=== PATIENT | male | born 1965 | race Caucasian/White ===

== ENCOUNTER 2016-05-24 16:31 | Emergency (ER) | payer OTHER ==
[~2016-05-24] VITALS: Ht 172.7 cm; Wt 81.8 kg
[~2016-05-24 16:31] MED LIST: LANS30CA8 PO; LISI20TA PO; PRAV20TA PO
[2016-05-24 17:11] VITALS: BP 155/84; PULSE 98; RESP 16; O2SAT 99
--- NOTE | 2016-05-24 17:18 | ED.REPORT ---
HPI-General Illness Date of Service May 24, 2016 ED Provider: History of Present Illness: doing bone marrow biospy, the injection needle hit him in the right palm, This is a long needle but small needle opening washed with soap and antiseptic for about 5 minutes, feels the needle went in maybe 1/4 of an inch. labs drawn and negative for HIV. primary care is [facility]. unknown tdap Nursing Notes Stated Complaint: POTENTIAL EXPOSURE Chief Complaint: Post Exposure Body Fluids Nursing Notes Reviewed: Yes Allergies: Coded Allergies: No Known Drug Allergies (Verified Allergy, Unknown, 05/24/16) Scheduled Lansoprazole-Expunged Drug, Do Not Renew! (Lansoprazole-Expunged Drug, Do Not Renew!) 30 Mg Capsule.dr 15 MG PO DAILY Lisinopril-Expunged Drug, Do Not Renew! (Lisinopril-Expunged Drug, Do Not Renew! ) 20 Mg Tablet 10 MG PO DAILY Pravastatin-Expunged Drug, Do Not Renew! (Pravastatin-Expunged Drug, Do Not Renew!) 20 Mg Tablet 20 MG PO HS General Time Seen by MD: 17:12 Chief Complaint Other (exposure) Hx Obtained From: Patient Sudden in Onset?: Yes Caused by: Accidental Context: Occurred at: Workplace Location: : Hand right Severity: Current: No pain currently Past Medical History Past Medical History Denies: Asthma Past Surgical History ankle surgery Smoking History Never Smoker Social History Alcohol Use: Denies alcohol use Drug Use: Denies drug use Occupation lives with works at [employer] center 05/24/2016 Ambulatory Status Independent Physical Exam Vital Signs Vital Signs Date Time Temp Pulse Resp B/P Pulse Ox O2 Delivery O2 Flow Rate FiO2 05/24/16 17:11 36.9 98 16 155/84 99 Room Air Initial VS: Reviewed, Vital signs normal General/Constitutional: Well-developed, Well-nourished Head / Eyes: Atraumatic, Normocephalic, PERRL ENT: Mucous membranes moist, Conjunctiva normal, No scleral icterus Neck: Supple, Non-tender, Full range of motion Respiratory: Breath sounds normal, Clear to auscultation, No respiratory distress Cardiovascular: Regular rate & rhythm, Heart sounds normal, Intact distal pulses Abdomen / GI: Soft, Non-tender, No guarding, No rebound, No distention Back: No CVA tenderness Lymphatic: No lymphadenopathy Extremities: Vascular intact, Neuro intact, No swelling, No tenderness Skin: Warm, Dry, No cyanosis Neurologic: Alert, Oriented, Nonfocal Psychiatric: Mood/affect normal, Behavior normal, Normal thought content General/Constitutional: Awake, Alert, No acute distress Neck: Atraumatic, Supple, No meningismus Respiratory / Chest: Atraumatic, Breath sounds NL, Breath sounds = bilat Cardiovascular: Heart rate NL, Regular rhythm, Heart sounds NL, No gallop right hand shows minute puncture wound on right themar eminence. No active bleeding. Has full range of motion. Cap refill is less than 3 sec. sensation intact distally. Interpretation & Diagnostics Lab Results Interpretation Test 05/24/16 17:41 Hold [place] Top Tube Received (Received) Re-Eval/Medical Decision Med Decision/Clinical Course 50 year old male presents for evualation after needle stick. Labs drawn and source is negative for HIV, hepatitis C is still pending. Updated on Tdap. No sign of comparment syndrome or cellulitis. Discharge & Departure Primary Impression: Needle stick injury Encounter type: initial encounter Qualified Code: W27.3XXA - Contact with needle (sewing), initial encounter Disposition: Home Patient Instructions: Needle Stick Injuries (ED) Additional Instructions: The exposure is a low risk. Prevention medication would not be advised in this exposure. The HIV labs have returned and they are negative . You have been updated on your tdap. You received Hep B immunization when you started here. Please follow with the Occupational health department at [facility] or employee health. If you choose not to file L and I , you can follow with primary care. Referrals: Kayleigh Zendejas MD EDSupervising Provider for APC: Gabriel Chatman MD copies to: Kayleigh Zendejas MD, Sue [facility] May 24, 2016 17:18
[2016-05-24] MEDS ORDERED: TdaP Vaccine 0.5 mL Inj IM ONE ×2 (17:33→17:35)
== END 2016-05-24 17:55 | disposition home or self-care (01) ==
LOC: SED 16:31
DX: S61.431A Puncture wound without foreign body of right hand, initial encounter (principal); W46.0XXA Contact with hypodermic needle, initial encounter; Y93.89 Activity, other specified; Y92.239 Unspecified place in hospital as the place of occurrence of the external cause; Y99.0 Civilian activity done for income or pay; Z23 Encounter for immunization
CPT/HCPCS: 36415; 86706; 90471; 90715; 99283; G0433